=== PATIENT | female | born 1940 | race Caucasian/White ===

== ENCOUNTER → 2016-04-21 | Outpatient (CLI) | payer MEDICARE, OTHER ==
[2016-04-21 10:54] LABS: ABSOLUTE BASOPHILS # (AUTO) 0.1 10^3/uL (0.0-0.2); ABSOLUTE EOSINOPHILS # (AUTO) 0.2 10^3/uL (0.0-0.6); ABSOLUTE LYMPHOCYTES (AUTO) 1.1 10^3/uL (0.5-4.7); ABSOLUTE MONOCYTES (AUTO) 0.4 10^3/uL (0.1-1.4); ABSOLUTE NEUT (AUTO) 1.8 10^3/uL (1.7-8.2); BASOPHILS % (AUTO) 2.6 % (0-2); EOSINOPHILS % (AUTO) 6.6 % (0-6); LYMPHOCYTES % (AUTO) 29.7 % (13-45); MEAN CORPUSCULAR HEMOGLOBIN 31.5 pg (27.0-33.4); MEAN CORPUSCULAR VOLUME 92 fl (80-97); MONOCYTES % (AUTO) 11.2 % (3-13); RED BLOOD COUNT 4.76 10^6/uL (3.72-5.28); RED CELL DISTRIBUTION WIDTH 12.4 % (11.5-14.0); SEGMENTED NEUTROPHILS % (AUTO) 49.9 % (42-78); WHITE BLOOD COUNT 3.6 10^3/uL (4.0-10.5)
[2016-04-21 11:14] LABS: ALANINE AMINOTRANSFERASE 30 U/L (9-52); ALBUMIN 4.5 g/dL (3.5-5.0); ALKALINE PHOSPHATASE 65 U/L (38-126); ANION GAP 10 (5-19); ASPARTATE AMINO TRANSFERASE 31 U/L (14-36); BLOOD UREA NITROGEN 14 mg/dL (7-20); CALCIUM 9.9 mg/dL (8.4-10.2); CARBON DIOXIDE 30 mmol/L (22-30); CHLORIDE 104 mmol/L (98-107); CHOLESTEROL 203.14 mg/dL (0-200); CREATININE RESULT 0.68 mg/dL (0.52-1.25); Direct HDL 52 mg/dL (>40); GLUCOSE 88 mg/dL (75-110); POTASSIUM 4.6 mmol/L (3.6-5.0); TOTAL PROTEIN 6.7 g/dL (6.3-8.2); TRIGLYCERIDES 168 mg/dL (<150)
[2016-04-21 11:25] LABS: DIRECT LDL 118 mg/dL (<100)
[2016-04-21 11:27] LABS: VLDL CHOLESTEROL 33.6 mg/dL (10-31)
[2016-04-21 11:41] LABS: THYROID STIMULATING HORMONE 2.46 uIU/mL (0.47-4.68)
== END ==
LOC: OD 09:12
PROVIDERS: ATTEND Physician Assistant
DX: E78.2 Mixed hyperlipidemia (principal); Z79.899 Other long term (current) drug therapy; E03.9 Hypothyroidism, unspecified
CPT/HCPCS: 36415; 80053; 80061; 84439; 84443; 85025

== ENCOUNTER 2017-07-15 11:35 | Emergency (ER) | payer MEDICARE, OTHER ==
[2017-07-15] MEDS ORDERED: ASPIRIN 81 MG TABLET, CHEWABLE PO ONE (11:48)
--- NOTE | 2017-07-15 12:03 | ER Document Report ---
ED Medical Screen (RME) - General Chief Complaint: Chest Pain Stated Complaint: CHEST PAIN Time Seen by Provider: 07/15/17 11:47 Mode of Arrival: Ambulatory Information source: Patient Notes: 77-year-old female no previous coronary artery disease presents with complaints of chest wall pain. Patient denies any fevers or chills notes it hurts with range of motion and deep breathing. Patient states that she was raking outside the symptoms have worsened since. Patient states she went to her primary care physician who sent her in because there is a concern of abnormal EKG When I reviewed the patient's medical records here I am unable to find an EKG, and patient does not remember having one done here 2 years ago, Patient's pain is reproducible upon palpation I have greeted and performed a rapid initial assessment of this patient. A comprehensive ED assessment and evaluation of the patient, analysis of test results and completion of the medical decision making process will be conducted by additional ED providers. PHYSICAL EXAMINATION: GENERAL: Well-appearing, well-nourished and in no acute distress. HEAD: Atraumatic, normocephalic. EYES: Pupils equal round extraocular movements intact, conjunctiva are normal. ENT: Nares patent NECK: Normal range of motion LUNGS: No respiratory distress Musculoskeletal: Normal range of motion NEUROLOGICAL: Normal speech, normal gait. PSYCH: Normal mood, normal affect. SKIN: Warm, Dry, normal turgor, no rashes or lesions noted. TRAVEL OUTSIDE OF THE [place] IN LAST 30 DAYS: No - Related Data Allergies/Adverse Reactions: Penicillins Adverse Reaction (Mild, Verified 07/15/17 11:38) rash Past Medical History - Past Medical History Cardiac Medical History: Reports: Hx Coronary Artery Disease Denies: Hx Heart Attack, Hx Hypertension Pulmonary Medical History: Denies: Hx Asthma, Hx Bronchitis, Hx COPD, Hx Pneumonia Neurological Medical History: Denies: Hx Cerebrovascular Accident, Hx Seizures Musculoskeltal Medical History: Reports Hx Arthritis Past Surgical History: Reports: Hx Hysterectomy - Immunizations Hx Diphtheria, Pertussis, Tetanus Vaccination: Yes Physical Exam - Vital signs Vitals: Temp Pulse Resp BP Pulse Ox 98.0 F 82 18 141/68 H 98 07/15/17 11:46 07/15/17 11:46 07/15/17 11:46 07/15/17 11:46 07/15/17 11:46 Course - Vital Signs Vital signs: Temp Pulse Resp BP Pulse Ox 98.0 F 82 18 141/68 H 98 07/15/17 11:46 07/15/17 11:46 07/15/17 11:46 07/15/17 11:46 07/15/17 11:46
--- NOTE | 2017-07-15 12:41 | ER Document Report ---
ED General - General Chief Complaint: Chest Pain Stated Complaint: CHEST PAIN Time Seen by Provider: 07/15/17 11:47 Mode of Arrival: Ambulatory TRAVEL OUTSIDE OF THE [place] IN LAST 30 DAYS: No - HPI Notes: 77-year-old female with a past medical history of hypothyroidism, lumbar spine surgery and hypercholesterolemia presents today in her doctor's office with complaints of chest pain. Patient reports that chest painradiates from her thoracic spine to her sternum that has been occurring intermittently for the last month, worse with coughing sneezing, better when she is not moving. States she has tried ice, resting, hot and cold compresses which has helped. Pain is 4 out of 10, achy, sore pain. Denies any radiation of pain to left arm or jaw. Denies any squeezing, pressure or tightness of chest pain. Patient states when she was gardening about a month ago, she tripped and fell on her upper back, she has had this in her pain since that time. Denies hitting her head or change in level consciousness. Patient was hoping to go to her doctor' s office to get a referral for physical therapy for her back, here concerned about the chest pain shooting from her back to her sternum on the left side and want her evaluated for acute coronary syndrome. Denies fevers, chills, palpitations, shortness of breath, dyspnea, nausea, vomiting, diarrhea, abdominal pain, hematuria,blurred vision, double vision, loss of vision, speech changes, LH, dizziness, syncope, headaches, wheezing, ST, URI, neck pain, weakness, bowel or bladder dysfunction, saddle anesthesia, numbness or tingling in bilateral upper or lower extremities equally, muscle paralysis, weakness in bilateral upper or lower extremities equally or rash. Denies IV drug use. - Related Data Allergies/Adverse Reactions: Penicillins Adverse Reaction (Mild, Verified 07/15/17 11:38) rash Past Medical History - General Information source: Relative - daughter - Social History Smoking Status: Never Smoker Chew tobacco use (# tins/day): No Frequency of alcohol use: None Drug Abuse: None Family History: Thyroid Disfunction Patient has suicidal ideation: No Patient has homicidal ideation: No - Past Medical History Cardiac Medical History: Reports: Hx Coronary Artery Disease Denies: Hx Heart Attack, Hx Hypertension Pulmonary Medical History: Denies: Hx Asthma, Hx Bronchitis, Hx COPD, Hx Pneumonia Neurological Medical History: Denies: Hx Cerebrovascular Accident, Hx Seizures Renal/ Medical History: Denies: Hx Peritoneal Dialysis Musculoskeltal Medical History: Reports Hx Arthritis Past Surgical History: Reports: Hx Hysterectomy - Immunizations Hx Diphtheria, Pertussis, Tetanus Vaccination: Yes Review of Systems - Review of Systems Constitutional: No symptoms reported EENT: No symptoms reported Cardiovascular: Chest pain Respiratory: No symptoms reported Gastrointestinal: No symptoms reported Genitourinary: No symptoms reported Female Genitourinary: No symptoms reported Musculoskeletal: See HPI Skin: No symptoms reported Hematologic/Lymphatic: No symptoms reported Neurological/Psychological: No symptoms reported Physical Exam - Vital signs Vitals: Temp Pulse Resp BP Pulse Ox 98.0 F 82 18 141/68 H 98 07/15/17 11:46 07/15/17 11:46 07/15/17 11:46 07/15/17 11:46 07/15/17 11:46 - Notes Notes: PHYSICAL EXAMINATION: GENERAL: Well-appearing, well-nourished and in no acute distress. HEAD: Atraumatic, normocephalic. EYES: Pupils equal round and reactive to light, extraocular movements intact, conjunctiva are normal. ENT: Nares patent, oropharynx clear without exudates. Moist mucous membranes. NECK: Normal range of motion, supple without lymphadenopathy LUNGS: Breath sounds clear to auscultation bilaterally and equal. No wheezes rales or rhonchi. HEART: Regular rate and rhythm without murmurs ABDOMEN: Soft, nontender, nondistended abdomen. No guarding, no rebound. No masses appreciated. Female : deferred Musculoskeletal: Normal range of motion, no pitting or edema. No cyanosis. T- spine tenderness on palpation T2-T6, noted thoracic paraspinal tenderness. Chest wall tenderness palpated on left fifth and sixth intercostal space to sternum, no step-off noted. Able to reproduce chest pain that brought her to the ER initially ecchymosis or crepitus. DTR +2 in BLE equally. Strength 5 out of 5 both distally and proximally to bilateral lower extremities normal motor and sensory function in BLE equally. Distal pulses + 2 BLE equally. Noted paraspinal tenderness near L2 and L3. No spinal tenderness. No CVA tenderness bilaterally. Femoral pulses + 2 bilaterally and equally. No abrasions, scars, lacerations, ecchymosis of any recent trauma. normal gait. NEUROLOGICAL: Cranial nerves grossly intact. Normal speech, normal gait. Normal sensory, motor exams PSYCH: Normal mood, normal affect. SKIN: Warm, Dry, normal turgor, no rashes or lesions noted. Course - Re-evaluation Re-evalutation: 07/15/17 14:35 Healthy and pleasant appearing 77-year-old female who is afebrile with vitals stable who is in no distress presents for evaluation of left-sided chest pain that radiates from her thoracic spine. Patient fell a month ago while gardening , states she fell on her back, has not had this evaluated since has experienced intermittent left-sided rib/chest wall pain since that time. She went to the doctors today to get a referral for physical therapy, they want her to be seen in the ER for evaluation of acute coronary syndrome. Cardiac enzymes negative, EKG negative for acute STEMI. CBC negative for leukocytosis or anemia. CMP negative for any renal or hepatic dysfunction. No electrolyte disturbances. Chest x-ray unremarkable. Patient has tenderness along her thoracic spine as well as paraspinal tenderness, with a history of recently falling in her thoracic back, we will get a CT thoracic spine to evaluate for occult fractures or compression fractures. She is not tachycardic, low suspicion of PE has not had any recent travel, immobilization or surgery. Patient is not having any pain at this time. Thoracic CT spine shows minimal compression of the superior endplate of the T10, does not show vertebral compression. Second set of troponin was negative. Patient remains asymptomatic for chest pain, vitals are stable, afebrile. Patient is not in any distress. At this time will discharge with return precautions and follow-up recommendations. Verbal discharge instructions given a the bedside and opportunity for questions given. Medication warnings reviewed. Patient is in agreement with this plan and has verbalized understanding of return precautions and the need for primary care follow-up in the next 24-72 hours. After performing a Medical Screening Examination, I estimate there is LOW risk for RUPTURED ESOPHAGUS, PNEUMOTHORAX, PULMONARY EMBOLISM, ACUTE CORONARY SYNDROME, OR THORACIC AORTIC DISSECTION, thus I consider the discharge disposition reasonable. I have reevaluated this patient multiple times and no significant life threatening changes are noted. The patient and I have discussed the diagnosis and risks, and we agree with discharging home with close follow-up. We also discussed returning to the Emergency Department immediately if new or worsening symptoms occur. We have discussed the symptoms which are most concerning (e.g., bloody sputum, worsening pain or shortness of breath) that necessitate immediate return. - Vital Signs Vital signs: Temp Pulse Resp BP Pulse Ox 98.0 F 82 16 134/78 H 100 07/15/17 11:46 07/15/17 11:46 07/15/17 13:01 07/15/17 13:01 07/15/17 13:33 - Laboratory Result Diagrams: 07/15/17 12:30 07/15/17 12:30 Laboratory results interpreted by me: 07/15/17 12:30 BUN 23 H - EKG Interpretation by Me EKG shows normal: Sinus rhythm Rate: Normal Rhythm: NSR - 85 bpm [place]/QRS: LBBB - No STEMI. Nonspecific ST segment changes. Discharge - Discharge Clinical Impression: Acute costochondritis, Defect of endplate of vertebra Condition: Good Disposition: HOME, SELF-CARE Instructions: Chest Wall Pain ([facility]) Additional Instructions: Costochondritis Your chest pain is coming from the rib cartilages in the chest wall. This is often caused by subtle straining of the ribs near the breastbone. The strain can occur from a mild injury, coughing or sneezing with a "cold," vigorous vomiting, or even from rib compression while sleeping. Often the pain doesn't begin until a couple of days after the strain. Persons with arthritis are especially prone to this type of pain, due to inflammation of the cartilage joints near the breast bone. But often, there is no clear reason why it happens. Rest from strenuous physical activity. This kind of chest pain is usually made worse by movement of the chest. Depending on the symptoms, we may prescribe medicine for pain and inflammation. Apply gentle warmth to the painful area for 15 minutes every hour or two. You should call contact the doctor immediately if things change. Further evaluation is needed if you develop a fever or cough, if the nature of the pain changes, or if you become short of breath. Referrals: MADALYN BARCENAS PA-C [Primary Care Provider] - Follow up in 3-5 days JOSE A GALVAN MD [ACTIVE STAFF] - Follow up in 3-5 days
[2017-07-15 12:51] LABS: ABSOLUTE BASOPHILS # (AUTO) 0.1 10^3/uL (0.0-0.2); ABSOLUTE EOSINOPHILS # (AUTO) 0.2 10^3/uL (0.0-0.6); ABSOLUTE LYMPHOCYTES (AUTO) 1.3 10^3/uL (0.5-4.7); ABSOLUTE MONOCYTES (AUTO) 0.6 10^3/uL (0.1-1.4); ABSOLUTE NEUT (AUTO) 3.3 10^3/uL (1.7-8.2); BASOPHILS % (AUTO) 1.3 % (0-2); EOSINOPHILS % (AUTO) 3.5 % (0-6); HEMATOCRIT 43.3 % (36.0-47.0); HEMOGLOBIN 14.9 g/dL (12.0-15.5); MEAN CORPUSCULAR HEMOGLOBIN 32.3 pg (27.0-33.4); MEAN CORPUSCULAR HGB CONC 34.5 g/dL (32.0-36.0); MEAN CORPUSCULAR VOLUME 94 fl (80-97); MONOCYTES % (AUTO) 10.4 % (3-13); PLATELET COUNT 158 10^3/uL (150-450); RED BLOOD COUNT 4.62 10^6/uL (3.72-5.28); RED CELL DISTRIBUTION WIDTH 13.1 % (11.5-14.0); SEGMENTED NEUTROPHILS % (AUTO) 60.8 % (42-78); TOTAL CELLS COUNTED % (AUTO) 100 %; WHITE BLOOD COUNT 5.5 10^3/uL (4.0-10.5)
--- NOTE | 2017-07-15 12:57 | RADIOLOGY REPORT (SQ) ---
EXAM DESCRIPTION: CHEST SINGLE VIEW COMPLETED DATE/TIME: 07/15/2017 12:22 pm REASON FOR STUDY: chest pain COMPARISON: 10/11/2006 EXAM PARAMETERS: NUMBER OF VIEWS: One view. TECHNIQUE: Single frontal radiographic view of the chest acquired. RADIATION DOSE: NA LIMITATIONS: None. FINDINGS: LUNGS AND PLEURA: Apical scarring. No pleural effusion. MEDIASTINUM AND HILAR STRUCTURES: No masses. Contour normal. HEART AND VASCULAR STRUCTURES: Heart normal in size. Normal vasculature. BONES: Healed left 6th rib fracture. HARDWARE: None in the chest. OTHER: No other significant finding. IMPRESSION: NO ACUTE RADIOGRAPHIC FINDING IN THE CHEST. TECHNICAL DOCUMENTATION: JOB ID: [id number] [employer]- All Rights Reserved Reading location - IP/workstation name: [email or web address][email or web address]
[2017-07-15 13:10] LABS: ALANINE AMINOTRANSFERASE 31 U/L (9-52); ALBUMIN 4.6 g/dL (3.5-5.0); ALKALINE PHOSPHATASE 102 U/L (38-126); ANION GAP 14 (5-19); ASPARTATE AMINO TRANSFERASE 30 U/L (14-36); BILIRUBIN,DIRECT 0.3 mg/dL (0.0-0.4); BILIRUBIN,TOTAL 0.7 mg/dL (0.2-1.3); BLOOD UREA NITROGEN 23 mg/dL (7-20); CALCIUM 10.2 mg/dL (8.4-10.2); CARBON DIOXIDE 30 mmol/L (22-30); CHLORIDE 101 mmol/L (98-107); CREATINE KINASE 87 U/L (30-135); GLUCOSE 102 mg/dL (75-110); POTASSIUM 4.2 mmol/L (3.6-5.0); SODIUM 144.8 mmol/L (137-145); TOTAL PROTEIN 7.1 g/dL (6.3-8.2)
[2017-07-15 13:20] LABS: CREATINE KINASE MB 2.09 ng/mL (<4.55)
[2017-07-15 13:28] LABS: TROPONIN I < 0.012 ng/mL
--- NOTE | 2017-07-15 14:36 | RADIOLOGY REPORT (SQ) ---
EXAM DESCRIPTION: CT THORACIC SPINE WITHOUT COMPLETED DATE/TIME: 07/15/2017 2:13 pm REASON FOR STUDY: thoracic spinal tenderness, fall x 1 month ago COMPARISON: None. TECHNIQUE: Axial images acquired through the thoracic spine without intravenous contrast. Images re viewed with lung, soft tissue and bone windows. Reconstructed coronal and sagittal MPR images review ed. Images stored on PACS. All CT scanners at this facility use dose modulation, iterative reconstruction, and/or weight based d osing when appropriate to reduce radiation dose to as low as reasonably achievable (ALARA). [facility]: Dose Right [facility]: CareDose [facility]: Dose Right [facility]: Teradose 4D [facility]: Smart [employer] RADIATION DOSE: CT Rad equipment meets quality standard of care and radiation dose reduction techniq ues were employed. CTDIvol: 17.6 mGy. DLP: 541 mGy-cm. mGy. LIMITATIONS: None. FINDINGS: VISUALIZED LUNGS: No acute opacities. No pneumothorax. SOFT TISSUES: No soft tissue swelling. No masses. VERTEBRAL BODIES: There is mild compression of the superior endplate of the T10 vertebra which is age indeterminate. No other vertebral compressions are identified. DISCS: No significant disc space narrowing. ALIGNMENT: Normal. TRANSVERSE PROCESSES, POSTERIOR ELEMENTS: No fractures. No dislocation. No acute findings. HARDWARE: None in the spine. VISUALIZED RIBS: No fractures. OTHER: No other significant finding. IMPRESSION: Mild compression of the superior endplate of the T10 vertebra which is age indeterminate . No other vertebral compressions are identified. Other findings as noted above TECHNICAL DOCUMENTATION: JOB ID: [id number] Quality ID # [id number]: Final reports with documentation of one or more dose reduction techniques (e.g., Au tomated exposure control, adjustment of the mA and/or kV according to patient size, use of iterative reconstruction technique) 2010 [employer]- All Rights Reserved Reading location - IP/workstation name: [email or web address]
[2017-07-15 18:18] VITALS: BP 136/75
--- NOTE | 2017-07-15 18:22 | EKG REPORT ---
SEVERITY:- ABNORMAL ECG - SINUS RHYTHM INCOMPLETE LEFT BUNDLE BRANCH BLOCK ANTERIOR INFARCT, AGE INDETERMINATE : Confirmed by: Marshall Louise MD 15-Jul-2017 18:21:31
== END 2017-07-15 18:34 | disposition home or self-care (01) ==
LOC: ER 11:35
DX: R07.9 Chest pain, unspecified (principal); M94.0 Chondrocostal junction syndrome [Tietze]; M48.8X9 Other specified spondylopathies, site unspecified; Z88.0 Allergy status to penicillin; Z90.710 Acquired absence of both cervix and uterus
CPT/HCPCS: 93005; 99285; 36415; 82553; 82550; 85025; 80053; 84484; 71045; 72128; 93010; A9270

== ENCOUNTER → 2017-11-03 | Outpatient (CLI) | payer MEDICARE ==
--- NOTE | 2017-11-03 16:35 | RADIOLOGY REPORT (SQ) ---
EXAM DESCRIPTION: BONE SURVEY COMPLETE COMPLETED DATE/TIME: 11/03/2017 3:52 pm REASON FOR STUDY: NEOPLASM OF UNSP BEHAVIOR OF BONE, SOFT TISSUE, AND SKIN D49.2 NEOPLASM OF UNSP B EHAVIOR OF BONE, SOFT TISSUE, AND SK COMPARISON: Chest films 10/11/2006, 07/15/2017 CT thoracic spine 07/15/2017 TECHNIQUE: Images of the axial and proximal appendicular skeleton are obtained, along with lateral s kull and frontal chest films. LIMITATIONS: None. FINDINGS: AP CHEST: Lytic permeative pattern in the clavicles and bilateral proximal humeri. Old le ft lateral rib fracture. No acute infiltrates. Cardiac silhouette size enma unremarkable. LATERAL SKULL: Few small subcentimeter lytic lesions in the bilateral frontal parietal regions AP BOTH HUMERI: Multiple permeative lytic lesions throughout both humeral diaphysis TWO-VIEW LUMBAR SPINE: Osteoporotic without compression deformity TWO-VIEW THORACIC SPINE: 50% compression of T10, 25% compression of T12 TWO VIEW CERVICAL SPINE: No compression deformities. Multilevel degenerative disc disease AP PELVIS: Tiny lytic permeative lesions in the right and left inferior pubic rami AP BOTH FEMURS: Tiny lytic permeative lesions in the right and left femoral diaphysis OTHER: Small lytic lesion in the right fibular diaphysis IMPRESSION: Findings worrisome for multiple myeloma TECHNICAL DOCUMENTATION: JOB ID: [id number] [employer]- All Rights Reserved Reading location - IP/workstation name: [email or web address]
== END ==
LOC: RAD 15:12
PROVIDERS: ATTEND Internal Medicine
DX: D49.2 Neoplasm of unspecified behavior of bone, soft tissue, and skin (principal)
CPT/HCPCS: 77075

== ENCOUNTER → 2017-11-04 | Outpatient (CLI) | payer MEDICARE ==
--- NOTE | 2017-11-04 16:48 | RADIOLOGY REPORT (SQ) ---
EXAM DESCRIPTION: HUMERUS RIGHT COMPLETED DATE/TIME: 11/04/2017 4:36 pm REASON FOR STUDY: PAIN IN RIGHT SHOULDER,PAIN IN RIGHT ARM M25.511 PAIN IN RIGHT SHOULDER M79.601 PAIN IN RIGHT ARM COMPARISON: Skeletal survey 11/03/2017 Right shoulder films 11/04/2017 NUMBER OF VIEWS: Two views. TECHNIQUE: Two radiographic images were acquired of the right humerus to include elbow and shoulder in at least one projection. LIMITATIONS: None. FINDINGS: MINERALIZATION: Osteopenic. BONES: Multiple multi in tiny permeative lytic lesions are seen throughout the right humerus involvin g the diaphysis and proximal metaphysis. No fracture. No periosteal new bone. SOFT TISSUES: No obvious swelling or foreign body. OTHER: No other significant finding. IMPRESSION: Permeative lytic pattern throughout the right humerus compatible with diagnosis of myelo ma TECHNICAL DOCUMENTATION: JOB ID: [id number]- All Rights Reserved Reading location - IP/workstation name: [email or web address]
--- NOTE | 2017-11-04 16:49 | RADIOLOGY REPORT (SQ) ---
EXAM DESCRIPTION: SHOULDER RIGHT 2 OR MORE VIEWS COMPLETED DATE/TIME: 11/04/2017 4:36 pm REASON FOR STUDY: PAIN IN RIGHT SHOULDER,PAIN IN RIGHT ARM M25.511 PAIN IN RIGHT SHOULDER M79.601 PAIN IN RIGHT ARM COMPARISON: Right humerus two views today Skeletal survey 11/03/2017 NUMBER OF VIEWS: Three views. TECHNIQUE: Internal rotation, external rotation, and Y view images acquired of the right shoulder. LIMITATIONS: None. FINDINGS: MINERALIZATION: Osteopenic BONES: Permeative lytic pattern throughout the visualized proximal humerus metaphysis and proximal di aphysis. Few permeative lytic lesions are seen in the clavicle. Scapula, right upper ribs intact. No acute fracture JOINTS: No glenohumeral malalignment. No AC joint widening VISUALIZED LUNGS AND RIBS: No pneumothorax. No rib fracture. SOFT TISSUES: No radiopaque foreign body. OTHER: No other significant finding. IMPRESSION: Permeative lytic pattern worrisome for myeloma. No acute fracture or malalignment TECHNICAL DOCUMENTATION: JOB ID: [id number] [employer]- All Rights Reserved Reading location - IP/workstation name: [facility]-RR
== END ==
LOC: RAD 16:04
PROVIDERS: ATTEND Internal Medicine
DX: M25.511 Pain in right shoulder (principal); M79.601 Pain in right arm

== ENCOUNTER → 2018-04-21 | Outpatient (CLI) | payer MEDICARE, OTHER ==
--- NOTE | 2018-04-21 12:14 | RADIOLOGY REPORT (SQ) ---
EXAM DESCRIPTION: HIP RIGHT AP/LATERAL COMPLETED DATE/TIME: 04/21/2018 12:04 pm REASON FOR STUDY: PAIN IN RIGHT HIP M25.551 PAIN IN RIGHT HIP COMPARISON: None. NUMBER OF VIEWS: Two views. TECHNIQUE: AP and frog-leg view of the right hip. LIMITATIONS: None. FINDINGS: MINERALIZATION: Normal. RIGHT HIP: No fracture or dislocation. No worrisome bone lesions. OPPOSITE HIP: No fracture or dislocation. No worrisome bone lesions. SOFT TISSUES: No findings. OTHER: No other significant finding. IMPRESSION: NEGATIVE STUDY OF THE RIGHT HIP. NO RADIOGRAPHIC EVIDENCE OF ACUTE INJURY. COMMENT: Pelvic fractures are often occult on plain radiographs. If strong clinical suspicion for f racture, recommend CT or MR. TECHNICAL DOCUMENTATION: JOB ID: [id number] [employer]- All Rights Reserved Reading location - IP/workstation name: [email or web address]
== END ==
LOC: RAD 11:40
PROVIDERS: ATTEND Internal Medicine Hematology & Oncology
DX: M25.551 Pain in right hip (principal)

== ENCOUNTER → 2018-07-27 | Outpatient (CLI) | payer MEDICARE, OTHER ==
--- NOTE | 2018-07-27 15:51 | RADIOLOGY REPORT (SQ) ---
EXAM DESCRIPTION: BONE SURVEY COMPLETE COMPLETED DATE/TIME: 07/27/2018 3:26 pm REASON FOR STUDY: MULTIPLE MYELOMA NOT HAVING ACHIEVED REMISSION C90.00 MULTIPLE MYELOMA NOT HAVING ACHIEVED REMISSION COMPARISON: Skeletal survey 11/03/2017 Right shoulder and humerus films 11/04/2017 TECHNIQUE: Images of the axial and proximal appendicular skeleton are obtained, along with lateral s kull and frontal chest films. LIMITATIONS: None. FINDINGS: AP CHEST: Since the prior skeletal survey on 11/03/2017, patient has developed a healed rig ht distal clavicle fracture, and healed left anterior 2nd through 7th rib fractures. LATERAL SKULL: No worrisome bone lesions. AP BOTH HUMERI: Multiple small lytic permeative lesions throughout both humeri unchanged TWO-VIEW CERVICAL AND LUMBAR SPINE: No worrisome bone lesions. TWO-VIEW THORACIC SPINE: Stable 25% compression deformities at T10 and T12 AP PELVIS: No worrisome bone lesions. AP BOTH FEMURS: Less than 5 mm right femoral diaphysis lesion, multiple tiny distal bilateral femoral diaphysis lesions are unchanged from 11/03/2017. OTHER: No other significant finding. IMPRESSION: Stable lytic lesions from myeloma. Since the prior skeletal survey patient has developed healed distal right clavicle fracture and heale d left anterior 2nd through 7th rib fractures TECHNICAL DOCUMENTATION: JOB ID: [id number] [employer]- All Rights Reserved Reading location - IP/workstation name: [email or web address]
== END ==
LOC: RAD 14:52
PROVIDERS: ATTEND Physician Assistant Medical
DX: C90.00 Multiple myeloma not having achieved remission (principal)
CPT/HCPCS: 77075

== ENCOUNTER → 2018-12-08 | Outpatient (CLI) | payer MEDICARE, OTHER ==
--- NOTE | 2018-12-08 16:00 | RADIOLOGY REPORT (SQ) ---
EXAM DESCRIPTION: BONE SURVEY COMPLETE COMPLETED DATE/TIME: 12/08/2018 3:33 pm REASON FOR STUDY: C90.00 MULTIPLE MYELOMA NOT HAVING ACHIEVED REMISSION C90.00 MULTIPLE MYELOMA NOT HAVING ACHIEVED REMISSION COMPARISON: None. TECHNIQUE: Images of the axial and proximal appendicular skeleton are obtained, along with lateral s kull and frontal chest films. LIMITATIONS: None. FINDINGS: AP CHEST: No bony findings. Lungs are clear. LATERAL SKULL: No worrisome bone lesions. AP BOTH HUMERI: There are several small lytic lesions in the humeri. These are less than 5 mm in siz e. Stable TWO-VIEW LUMBAR SPINE: No worrisome bone lesions. TWO-VIEW THORACIC SPINE: Stable compression changes at T10 and T12. AP PELVIS: No worrisome bone lesions. AP BOTH FEMURS: Stable lytic lesion in the right mid femoral diaphysis. Stable small bilateral dista l femoral diaphysis lesions. OTHER: No other significant finding. IMPRESSION: Stable humeral and femoral lesions. No acute finding. TECHNICAL DOCUMENTATION: JOB ID: [id number] [employer]- All Rights Reserved Reading location - IP/workstation name: [email or web address]
== END ==
LOC: RAD 15:00
PROVIDERS: ATTEND Internal Medicine
DX: C90.00 Multiple myeloma not having achieved remission (principal)
CPT/HCPCS: 77075

== ENCOUNTER → 2019-06-01 | Outpatient (CLI) | payer MEDICARE, OTHER ==
--- NOTE | 2019-06-01 13:06 | RADIOLOGY REPORT (SQ) ---
EXAM DESCRIPTION: MRI RT UPPER JOINT COMBO COMPLETED DATE/TIME: 06/01/2019 11:57 am REASON FOR STUDY: PAIN IN RIGHT SHOULDER (M25.511), MULTIPLE MYELOMA NOT HAVING ACHIEVED ALESSANDRA C90.00 MULTIPLE MYELOMA NOT HAVING ACHIEVED REMISSION COMPARISON: Skeletal survey 12/08/2018. No recent comparison radiographs. TECHNIQUE: Multiplanar imaging of the right shoulder to include T1-weighted, postcontrast T1-weighte d, and T2-weighted images. CONTRAST TYPE AND DOSE: 10 mL Dotarem. RENAL FUNCTION: Not indicated. ACR Type II contrast agent associated with few, if any, unconfounded cases of NSF LIMITATIONS: None. FINDINGS: BONE MARROW: No aggressive bone lesions are appreciated. Minimal heterogeneity in the pro ximal humerus in the region of the neck. Nonspecific. Small myeloma deposits are possible, however islands of red marrow could also explain this appearance. Midclavicular fracture looks healed, incom pletely imaged. SOFT TISSUES: Mild cuff disease includes tendinosis scratch at mild rotator cuff disease includes ten dinosis and probable partial tear. No complete disruption. Probable atrophy in the infraspinatus mu scle. No axillary adenopathy or regional soft tissue mass appreciated. Mild scarring and enhancemen t along the inferior capsule may reflect adhesive capsulitis. OTHER: No other significant finding. IMPRESSION: 1. As above. No aggressive destructive lesions although small foci of myeloma cannot be excluded. 2. Cuff disease. 3. Probable adhesive capsulitis. TECHNICAL DOCUMENTATION: JOB ID: [id number] 2010 [employer]- All Rights Reserved Reading location - IP/workstation name: [email or web address]
== END ==
LOC: RAD 10:46
PROVIDERS: ATTEND Physician Assistant Medical
DX: C90.00 Multiple myeloma not having achieved remission (principal); M75.101 Unspecified rotator cuff tear or rupture of right shoulder, not specified as traumatic; M25.511 Pain in right shoulder
CPT/HCPCS: 82565; 73223; A9576

== ENCOUNTER → 2020-01-08 | Outpatient (CLI) | payer MEDICARE, OTHER ==
--- NOTE | 2020-01-09 13:20 | RADIOLOGY REPORT (SQ) ---
EXAM DESCRIPTION: BONE SURVEY COMPLETE IMAGES COMPLETED DATE/TIME: 01/08/2020 3:24 pm REASON FOR STUDY: (C90.00)MULTIPLE MYELOMA NOT HAVING ACHIEVED REMISSION C90.00 MULTIPLE MYELOMA NO T HAVING ACHIEVED REMISSION COMPARISON: 12/08/2018 TECHNIQUE: Images of the axial and proximal appendicular skeleton are obtained, along with lateral s kull and frontal chest films. LIMITATIONS: None. FINDINGS: AP CHEST: No bony findings. Lungs are clear. LATERAL SKULL: No worrisome bone lesions. AP BOTH HUMERI: Stable small lytic lesions in the humeri. TWO-VIEW LUMBAR SPINE: No worrisome bone lesions. TWO-VIEW THORACIC SPINE: No worrisome bone lesions. AP PELVIS: No worrisome bone lesions. AP BOTH FEMURS: Stable small femoral lesions. OTHER: No other significant finding. IMPRESSION: Stable humeral and femoral lesions. No new findings. TECHNICAL DOCUMENTATION: JOB ID: [id number] 2010 [employer]- All Rights Reserved Reading location - IP/workstation name: [email or web address]
== END ==
LOC: RAD 14:54
PROVIDERS: ATTEND Internal Medicine
DX: C90.00 Multiple myeloma not having achieved remission (principal)
CPT/HCPCS: 77075

== ENCOUNTER 2020-02-06 08:18 | Day surgery (SDC) | payer MEDICARE, OTHER ==
[2020-02-01 10:06] LABS: HEMATOCRIT 41.4 % (36.0-47.0); HEMOGLOBIN 13.9 g/dL (12.0-15.5); MEAN CORPUSCULAR HEMOGLOBIN 31.1 pg (27.0-33.4); MEAN CORPUSCULAR HGB CONC 33.6 g/dL (32.0-36.0); MEAN CORPUSCULAR VOLUME 93 fl (80-97); PLATELET COUNT 140 10^3/uL (150-450); RED BLOOD COUNT 4.47 10^6/uL (3.72-5.28); RED CELL DISTRIBUTION WIDTH 12.4 % (11.5-14.0); WHITE BLOOD COUNT 4.3 10^3/uL (4.0-10.5)
[2020-02-01 10:34] LABS: ANION GAP 8 (5-19); BLOOD UREA NITROGEN 16 mg/dL (7-20); CALCIUM 9.5 mg/dL (8.4-10.2); CARBON DIOXIDE 28 mmol/L (22-30); CHLORIDE 105 mmol/L (98-107); GLUCOSE 85 mg/dL (75-110); POTASSIUM 4.3 mmol/L (3.6-5.0)
--- NOTE | 2020-02-02 09:20 | EKG REPORT ---
SEVERITY:- ABNORMAL ECG - SINUS RHYTHM LEFT BUNDLE BRANCH BLOCK : Confirmed by: Felix Wood 02-Feb-2020 09:19:12
[~2020-02-06 08:18] MED LIST: LACTATED RINGERS 1000 ML IV PRN; LIDOCAINE 0.5% INJ-PF (5 MG/ML) 50 ML SDV SUBCUT PRN; METRONIDAZOLE 500 MG/NS RTU 500 MG/100 ML RTUPB IV ONE; METRONIDAZOLE 500 MG/NS RTU 500 MG/100 ML RTUPB IV PRN
[2020-02-06] MEDS ORDERED: LIDOCAINE 2% INJ-PF (20 MG/ML) 10 ML AMPUL ONE (12:27)
[2020-02-06] MEDS ORDERED: LIDOCAINE 1% INJ-PF (10 MG/ML) 30 ML SDV ONE (12:28)
[2020-02-06] MEDS ORDERED: ONDANSETRON HCL INJ/PF 4 MG/2 ML SDV ONE (12:28)
[2020-02-06] MEDS ORDERED: PROPOFOL INJ 200 MG/20 ML VIAL IV ONE (12:28)
[2020-02-06] MEDS ORDERED: FENTANYL CITRATE INJ/PF 100 MCG/2 ML AMPUL ONE (12:28)
[2020-02-06] MEDS ORDERED: MORPHINE SULFATE 10 MG/ML INJ IV PRN (13:10)
[2020-02-06] MEDS ORDERED: MEPERIDINE HCL/PF INJ 25 MG/1 ML DISP.SYRIN IV PRN (13:10)
[2020-02-06] MEDS ORDERED: OXYCODONE-ACETAMINOPHEN 5-325 MG TABLET PO PRN ×2 (13:10)
[2020-02-06] MEDS ORDERED: FENTANYL CITRATE INJ/PF 100 MCG/2 ML AMPUL IV PRN ×3 (13:10)
[2020-02-06] MEDS ORDERED: DIPHENHYDRAMINE HCL 50 MG/ML VIAL IV PRN (13:10)
[2020-02-06] MEDS ORDERED: PROMETHAZINE HCL INJ 25 MG/1 ML VIAL IV PRN ×2 (13:10)
--- NOTE | 2020-02-06 13:35 | Operative Report ---
Operative Report DATE OF SURGERY: 02/06/20 PREOPERATIVE DIAGNOSIS: Soft tissue mass right buttock POSTOPERATIVE DIAGNOSIS: Same suspicious for neoplasm OPERATION: Complete excision of right buttock mass and closure of wound over drain SURGEON: ASHLY JUNE 1ST COOLER SERVICER: CRISTÓBAL IRENE ANESTHESIA: LMAC TISSUE REMOVED OR ALTERED: Right buttock mass COMPLICATIONS: None ESTIMATED BLOOD LOSS: Minimal INTRAOPERATIVE FINDINGS: See below PROCEDURE: Patient seen in preop holding area the right buttock was marked. She is then taken the main operating room where LMAC anesthesia was induced. She is placed in the left lateral decubitus position, right side up. The right buttock prepped and draped in sterile fashion with Betadine Surgical plan and surgical timeout were conducted. Markings were made on the skin for a horizontally oriented eating ellipse enc ompassing the right buttock mass which was approximately 4-1/2 to 5 cm in diameter, with an excoriated area of the skin approximately 3 cm in diameter. The skin was anesthetized with 1% plain lidocaine. The ellipse of skin was excised with a #10 blade. The level of the dissection was then taken down all the way to the fascia of the gluteus daija with electrocautery. The renal biopsy including the mass was removed from the right buttock intact, labeled with a long suture in the lateral position a short suture in the superior position. The specimen was bivalved horizontally by Dr. June and found to contain a soft tissue tumor. The specimen was sent to pathology for permanent analysis. Hemostasis was excellent. Nonetheless we felt that closure over drain would be most appropriate. Therefore a large Gaston drain was placed to the inferior soft tissue flap, secured to the skin with 2-0 Prolene suture, trimmed to the appropriate length, tucked into the subcutaneous tissue, and the wound closed in layers with 2-0 Vicryl 3-0 Vicryl benzoin and Steri-Strips. Appropriate sterile dressings were applied. Patient taught procedure well, returned to supine position, taken recovery room in stable condition. KIM Sanders assisted with tissue retraction, hemostasis, drain placement, and wound closure.
--- NOTE | 2020-02-06 13:38 | Discharge Summary ---
Discharge Summary (SDC) - Discharge Final Diagnosis: Soft tissue mass right buttock Date of Surgery: 02/06/20 Discharge Date: 02/06/20 Condition: Good Treatment or Instructions: Patient instructed on drain care, and recording output. Teach patient's daughter to empty drain. Patient follow-up with Dr. Shah in 1 to 2 weeks at [facility]. May resume preoperative medications diet and activity. She can take Tylenol or Motrin as needed pain. May shower in 48 hours in care to not unseat drain. Referrals: MADALYN BARCENAS PA-C [Primary Care Provider] - Discharge Diet: As Tolerated Discharge Activity: Activity As Tolerated Home Care Assistance: None Needed Report the Following to Your Physician Immediately: Shortness of Breath, Increase in Pain, Fever over 101 Degrees
[2020-02-06 15:52] VITALS: BP 114/55
== END 2020-02-06 15:25 | disposition home or self-care (01) ==
LOC: OROUT 08:18
PROVIDERS: ATTEND Surgery
DX: C49.5 Malignant neoplasm of connective and soft tissue of pelvis (principal); C90.00 Multiple myeloma not having achieved remission; E03.9 Hypothyroidism, unspecified; E78.00 Pure hypercholesterolemia, unspecified; G89.29 Other chronic pain; M54.9 Dorsalgia, unspecified; G25.2 Other specified forms of tremor; G62.9 Polyneuropathy, unspecified; Z79.899 Other long term (current) drug therapy; Z79.890 Hormone replacement therapy; Z20.828 Contact with and (suspected) exposure to other viral communicable diseases
CPT/HCPCS: 11606; 12032; 93005; 36415; 85027; 80048; 88342 ×2; 88341 ×2; 88305 ×2; 93010; 00300; U0003; J3010; J3490 ×3; J2405; J2704; C9803; 300; 87635

== ENCOUNTER 2020-03-10 08:39 | Day surgery (SDC) | payer MEDICARE, OTHER ==
[2020-03-10 10:05] LABS: HEMATOCRIT 39.8 % (36.0-47.0); HEMOGLOBIN 13.5 g/dL (12.0-15.5); MEAN CORPUSCULAR HEMOGLOBIN 31.2 pg (27.0-33.4); MEAN CORPUSCULAR VOLUME 92 fl (80-97); PLATELET COUNT 138 10^3/uL (150-450); RED BLOOD COUNT 4.34 10^6/uL (3.72-5.28); RED CELL DISTRIBUTION WIDTH 12.7 % (11.5-14.0); WHITE BLOOD COUNT 4.5 10^3/uL (4.0-10.5)
[2020-03-10 10:08] LABS: INTERNATIONAL RATION (INR) 0.93; PROTHROMBIN TIME 12.7 SEC (11.4-15.4)
[2020-03-10 10:09] LABS: PARTIAL THROMBOPLASTIN TIME 30.5 SEC (23.5-35.8)
[2020-03-10 10:23] LABS: BLOOD UREA NITROGEN 15 mg/dL (7-20)
[2020-03-10] MEDS ORDERED: MIDAZOLAM 2 MG/2 ML INJ ONE (11:06)
[2020-03-10] MEDS ORDERED: FENTANYL CITRATE INJ/PF 100 MCG/2 ML AMPUL ONE (11:06)
--- NOTE | 2020-03-10 12:46 | RADIOLOGY REPORT (SQ) ---
EXAM DESCRIPTION: CT BIOPSY BONE MARROW, NEEDLE IMAGES COMPLETED DATE/TIME: 03/10/2020 11:37 am REASON FOR STUDY: MYELOMA NOT HAVING ACHIEVED REMISSION C90.00 MULTIPLE MYELOMA NOT HAVING ACHIEVED REMISSION Z79.01 FDC (CURRENT) USE OF ANTICOAGULANTS COMPARISON: None. FLUORO TIME: 1.8 seconds. 55 images submitted to PACS. LIMITATIONS: None. PROCEDURE: The procedure, risks, benefits, and alternatives were discussed with the patient in the p reprocedural area, and all questions were answered. Informed consent was obtained verbally and in wri ting. The patient was then brought to the CT suite, positioned prone on the CT gurney, and a time-out was p erformed. After that, axial images of the pelvis were obtained for targeting of the iliac tuberosity. Based on review of the axial images an appropriate access site was selected on the left buttock. The area around the selected access site was then prepped and draped with 2% chlorhexidine utilizing standard sterile technique. After that, the access site was infiltrated 1% lidocaine and a skin incis ion was made with a #11 blade. An 11 gauge Osteo-Site Manzanares coaxial needle was then advanced into th e iliac tuberosity. After that, the inner stylet of the coaxial needle was replaced for a 13 gauge bi opsy needle and 1 core sample was obtained. 15 mL of marrow aspirate were then collected through the cannula of the coaxial needle. Once the aspirate was collected, the cannula of the Osteo-Site Manzanares coaxial needle was removed and axial images of the biopsied area were obtained to exclude an acute c omplication. The patient tolerated the procedure well without immediate complication. At the end of the procedure the patient's condition was unchanged from the preprocedural baseline. IV conscious sedation was administered at the direction of the performing physician by a jessy richards. 1 milligrams of Versed and 50 micrograms of fentanyl. Physiologic monitoring was provided befor e, during, and after sedation. The total sedation time was 30 minutes. Documentation of [id number] time performing proceduralist spent monitoring the patient: 15 minutes. IMPRESSION: Successful CT-guided biopsy bone marrow biopsy and aspiration. COMMENT: Patient medication list reviewed: Yes- Quality ID# 130:Eligible professional attests to doc umenting in the medical record they obtained, updated, or reviewed the patient's current medications. Quality ID #76: The patient was prepped and draped using maximum sterile barrier technique including cap, mask, sterile gown, sterile gloves, a large sterile sheet, hand hygiene, and 2% Chlorhexidine fo r cutaneous antisepsis. When ultrasound is used, sterile ultrasound techniques are followed requiring sterile gel and sterile probes. Quality ID 145: Final reports for procedures using fluoroscopy that document radiation exposure ashley clarence, or exposure time and number of fluorographic images (if radiation exposure indices are not avail able) Quality ID# 436: Final reports with documentation of one or more dose reduction techniques (e.g., Aut omated exposure control, adjustment of the mA and/or kV according to patient size, use of iterative r econstruction technique) TECHNICAL DOCUMENTATION: JOB ID: [id number] 2010 [employer]- All Rights Reserved rev Reading location - IP/workstation name: [email or web address]
[2020-03-10 16:20] VITALS: BP 120/64
== END 2020-03-10 13:50 | disposition home or self-care (01) ==
LOC: RAD 08:39
PROVIDERS: ATTEND Internal Medicine
DX: C90.00 Multiple myeloma not having achieved remission (principal); Z79.01 Long term (current) use of anticoagulants; Z79.899 Other long term (current) drug therapy; Z88.0 Allergy status to penicillin; Z88.5 Allergy status to narcotic agent
CPT/HCPCS: 36415; 84520; 82565; 85027; 85610; 85730; 38221; J2250; J3010

== ENCOUNTER → 2020-03-18 | Outpatient (CLI) | payer MEDICARE, OTHER ==
--- NOTE | 2020-03-19 10:11 | RADIOLOGY REPORT (SQ) ---
EXAM DESCRIPTION: PET CT WHOLE BODY IMAGES COMPLETED DATE/TIME: 03/18/2020 1:34 pm REASON FOR STUDY: (C90.00)MULTIPLE MYELOMA NOT HAVING ACHIEVED REMISSION C90.00 MULTIPLE MYELOMA NO T HAVING ACHIEVED REMISSION COMPARISON: Bone survey dated 01/08/2020 RADIONUCLIDE AND DOSE: 8.18 mCi F18 FDG The route of agent administration: Intravenous FASTING BLOOD SUGAR: 84 mg/dl CONTRAST TYPE AND DOSE: No CT contrast given. TECHNIQUE: Blood glucose level was verified. Above dose of FDG was injected intravenously. 2-D seg mented attenuation correction images were obtained through the entire body. Noncontrast CT images we re obtained for attenuation correction and fusion with emission images. CT images were performed wit hout oral or intravenous contrast and are not sensitive for parenchymal lesions. A series of overlap ping emission PET images were obtained. Images reviewed and manipulated at independent work station by the radiologist. Images stored on PACS. LIMITATIONS: None. FINDINGS: HEAD AND NECK: There is focal increased metabolic activity just anterior to the left later al aspect of the C1 vertebral body. SUV is 7.5. There is no corresponding CT abnormality. CHEST: No areas of abnormal metabolic activity in the chest. ABDOMEN AND PELVIS: No areas of abnormal metabolic activity in the abdomen or pelvis. Expected physi ologic activity is present in the genitourinary system and bowel. LOWER EXTREMITIES: No abnormal metabolic activity in the soft tissues of the lower extremities. BONES: Abnormal uptake in the right coracoclavicular joint most likely degenerative. SUV is 2.6. Th ere is increased metabolic activity in the left humerus. SUV is 3.5 consistent with neoplasm. There is a sternal lesion with an SUV of 3.1. There is increased metabolic activity in the left medial fe moral condyles. There is sclerosis on accompanying CT images. SUV however is less than 2. ADDITIONAL CT FINDINGS: No additional significant findings on the noncontrast CT images. OTHER: No other significant findings. IMPRESSION: Scattered areas of increased metabolic activity is described. Findings are most promine nt in the left humerus and sternum. There is mild increased metabolic activity in the left medial fe moral condyles. SUV however is less than 2. Uptake anterior to the left lateral mass of C1 is present etiology of this is uncertain. SUV is 7.5 it is asymmetric. No corresponding CT abnormality is noted. TECHNICAL DOCUMENTATION: JOB ID: [id number] 2010 [employer]- All Rights Reserved Reading location - IP/workstation name: [email or web address]
== END ==
LOC: RAD 09:14
PROVIDERS: ATTEND Internal Medicine
DX: C90.00 Multiple myeloma not having achieved remission (principal)
CPT/HCPCS: 78816; A9552